=== PATIENT | male | born 1960 | race African-American/Black ===

== ENCOUNTER 2018-02-01 10:05 | Observation (INO) | payer MEDICARE, MEDICAID ==
--- NOTE | 2018-02-01 10:24 | ER Document Report ---
ED GI/ <EDUARDO HUMPHREY - Last Filed: 02/01/18 17:37> - General Mode of Arrival: Ambulatory Information source: Patient <ABBY OSEI - Last Filed: 02/02/18 06:53> - General Stated Complaint: VOMITING BLOOD Time Seen by Provider: 02/01/18 10:14 Notes: 58 year old male that presents to the emergency department today in custody of the [facility] [place] with complaints of vomiting blood prior to arrival. Patient states he was arrested last night at 0100 for not paying child support. Patient states that this morning he was eating breakfast, he felt hot, and then had 4 episodes of vomiting. Patient states his vomit was nothing but "dark red blood". Patient states in the first episode he noticed clots. Patient admits to being an alcoholic, stating he drinks at least a case of old Thai malt liquor a day. Patient denies any blood in stool. (SEA ABBY) - Related Data Allergies/Adverse Reactions: No Known Allergies Allergy (Verified 02/01/18 13:46) Past Medical History - Social History Smoking Status: Current Every Day Smoker Family History: Reviewed & Not Pertinent <ABBY OSEI - Last Filed: 02/02/18 06:53> Physical Exam - Rectal Tenderness: Yes Stool: Heme positive Hemorrhoids: None Prostate: Enlarged <MILAGROEDUARDO - Last Filed: 02/01/18 17:37> <ABBY OSEI - Last Filed: 02/02/18 06:53> - Vital signs Vitals: Temp Pulse Resp BP Pulse Ox 99 F 92 16 164/97 H 97 02/01/18 10:05 02/01/18 10:05 02/01/18 10:05 02/01/18 10:05 02/01/18 10:05 - Notes Notes: Physical Exam: General: Alert, appears well. In handcuffs. HEENT: Normocephalic. Atraumatic. PERRL. Extraocular movements intact. Oropharynx clear. Neck: Supple. Non-tender. Respiratory: No respiratory distress. Clear and equal breath sounds bilaterally. Cardiovascular: Regular rate and rhythm. Abdominal: Large amounts of fluid in bowel on percussion. No distension. Normal Bowel Sounds. Back: Non-tender. No deformity or step off. Extremities: Moves all four extremities. Upper extremities: Normal inspection. Normal ROM. Lower extremities: Normal inspection. No edema. Normal ROM. Neurological: Normal cognition. AAOx4. Normal speech. Psychological: Normal affect. Normal Mood. Skin: Warm. Dry. Normal color. (ABBY OSEI) Course - Laboratory Result Diagrams: 02/01/18 15:30 02/01/18 11:10 - Consults Dr. Pearl Consulted provider: will come to ER <EDUARDO HUMPHREY - Last Filed: 02/01/18 17:37> - Laboratory Result Diagrams: 02/02/18 04:07 02/01/18 11:10 <ABBY OSEI - Last Filed: 02/02/18 06:53> - Vital Signs Vital signs: Temp Pulse Resp BP Pulse Ox 98.8 F 67 18 138/81 H 98 02/02/18 03:28 02/02/18 03:28 02/02/18 03:28 02/02/18 03:28 02/02/18 03:28 - Laboratory Laboratory results interpreted by me: 02/01/18 02/01/18 02/01/18 10:49 11:10 11:10 WBC 3.5 L RBC MCV 98 H MCH 34.1 H AST 171 H Total Protein 9.6 H Albumin 5.2 H Urine Protein 30 H Urine Urobilinogen 2.0 H 02/01/18 15:30 WBC RBC 4.05 L MCV MCH 34.2 H AST Total Protein Albumin Urine Protein Urine Urobilinogen Discharge - Discharge Admitting Provider: Hospitalist Unit Admitted: Medical Floor <EDUARDO HUMPHREY - Last Filed: 02/01/18 17:37> <ABBY OSEI - Last Filed: 02/02/18 06:53> - Discharge Clinical Impression: Upper GI bleed Condition: Stable Disposition: ADMITTED INPATIENT Scribe Attestation: 02/01/18 10:51 I personally performed the services described in the documentation, reviewed and edited the documentation which was dictated to the scribe in my presence, and it accurately records my words and actions. (EDUARDO HUMPHREY) Scribe Documentation - Scribe Written by Scribe:: Yogi Candelario, 02/01/2018 1118 acting as scribe for :: Milagro <ABBY OSEI - Last Filed: 02/02/18 06:53>
[2018-02-01] MEDS ORDERED: PANTOPRAZOLE SODIUM 40 MG VIAL IV ONE (10:26)
[2018-02-01 11:39] LABS: ABSOLUTE EOSINOPHILS # (AUTO) 0.1 10^3/uL (0.0-0.6); ABSOLUTE MONOCYTES (AUTO) 0.3 10^3/uL (0.1-1.4); BASOPHILS % (AUTO) 0.9 % (0-2); EOSINOPHILS % (AUTO) 4.1 % (0-6); HEMATOCRIT 43.8 % (37.9-51.0); HEMOGLOBIN 15.2 g/dL (13.5-17.0); LYMPHOCYTES % (AUTO) 29.2 % (13-45); MEAN CORPUSCULAR HEMOGLOBIN 34.1 pg (27.0-33.4); MEAN CORPUSCULAR HGB CONC 34.6 g/dL (32.0-36.0); MEAN CORPUSCULAR VOLUME 98 fl (80-97); MONOCYTES % (AUTO) 9.4 % (3-13); PLATELET COUNT 248 10^3/uL (150-450); RED BLOOD COUNT 4.45 10^6/uL (4.35-5.55); RED CELL DISTRIBUTION WIDTH 13.1 % (11.5-14.0); SEGMENTED NEUTROPHILS % (AUTO) 56.4 % (42-78); TOTAL CELLS COUNTED % (AUTO) 100 %; WHITE BLOOD COUNT 3.5 10^3/uL (4.0-10.5)
[2018-02-01 11:43] LABS: APPEARANCE,URINE SLIGHTLY-CLOUDY; BILIRUBIN,URINE NEGATIVE (NEGATIVE); COLOR,URINE YELLOW; GLUCOSE, URINE NEGATIVE (NEGATIVE); KETONES,URINE NEGATIVE (NEGATIVE); LEUKOCYTE ESTERASE,URINE NEGATIVE (NEGATIVE); NITRITE,URINE NEGATIVE (NEGATIVE); PROTEIN,URINE 30 mg/dL (NEGATIVE); URINE SPECIFIC GRAVITY 1.015
[2018-02-01 12:01] LABS: ALANINE AMINOTRANSFERASE 44 U/L (21-72); ALBUMIN 5.2 g/dL (3.5-5.0); ALKALINE PHOSPHATASE 61 U/L (38-126); ANION GAP 14 (5-19); ASPARTATE AMINO TRANSFERASE 171 U/L (17-59); BILIRUBIN,DIRECT 0.4 mg/dL (0.0-0.4); BLOOD UREA NITROGEN 7 mg/dL (7-20); CALCIUM 10.2 mg/dL (8.4-10.2); CARBON DIOXIDE 28 mmol/L (22-30); CHLORIDE 98 mmol/L (98-107); CREATINE KINASE 167 U/L (55-170); GLUCOSE 90 mg/dL (75-110); POTASSIUM 4.9 mmol/L (3.6-5.0); SODIUM 139.9 mmol/L (137-145); TOTAL PROTEIN 9.6 g/dL (6.3-8.2)
[2018-02-01 12:14] LABS: TROPONIN I < 0.012 ng/mL
[2018-02-01] MEDS ORDERED: MAG HYDROX/AL HYDROX/SIMETH SUSP 30 ML UDCUP PO ONE (12:51)
[2018-02-01 15:43] LABS: ABSOLUTE EOSINOPHILS # (AUTO) 0.1 10^3/uL (0.0-0.6); ABSOLUTE LYMPHOCYTES (AUTO) 1.1 10^3/uL (0.5-4.7); ABSOLUTE MONOCYTES (AUTO) 0.4 10^3/uL (0.1-1.4); ABSOLUTE NEUT (AUTO) 2.5 10^3/uL (1.7-8.2); BASOPHILS % (AUTO) 1.1 % (0-2); EOSINOPHILS % (AUTO) 2.8 % (0-6); HEMATOCRIT 39.3 % (37.9-51.0); HEMOGLOBIN 13.8 g/dL (13.5-17.0); LYMPHOCYTES % (AUTO) 27.2 % (13-45); MEAN CORPUSCULAR HEMOGLOBIN 34.2 pg (27.0-33.4); MEAN CORPUSCULAR HGB CONC 35.2 g/dL (32.0-36.0); MEAN CORPUSCULAR VOLUME 97 fl (80-97); MONOCYTES % (AUTO) 9.9 % (3-13); PLATELET COUNT 258 10^3/uL (150-450); RED BLOOD COUNT 4.05 10^6/uL (4.35-5.55); RED CELL DISTRIBUTION WIDTH 13.1 % (11.5-14.0); TOTAL CELLS COUNTED % (AUTO) 100 %; WHITE BLOOD COUNT 4.2 10^3/uL (4.0-10.5)
[2018-02-01] MEDS ORDERED: PIPERACILLIN/TAZOBACTAM 3.375 GM VIAL IV ONE (16:17)
[2018-02-01] MEDS ORDERED: SUCRALFATE SUSP 1 GM/10 ML UDCUP PO ONE (16:22)
[2018-02-01] MEDS ORDERED: NORMAL SALINE 1000 ML 1,000 ML IV ONE (16:29)
[2018-02-01] MEDS ORDERED: NORMAL SALINE 1000 ML 1,000 ML with POTASSIUM CHLORIDE 20 MEQ, MAGNESIUM SULFATE 8 MEQ,... IV PRN ×5 (18:09)
[2018-02-01] MEDS ORDERED: LORAZEPAM INJ 2 MG/1 ML VIAL IV PRN (18:10)
--- NOTE | 2018-02-01 18:33 | PDOC H&P ---
History of Present Illness Patient complains of: hematemesis History of Present Illness: SHAHEEN AARON is a 58 year old male who was brought in from snf presenting with hematemesis. Patient has a history of chronic alcoholism and reports a history of being previously diagnosed with CHF several years ago but is not taking any medication at the moment. Patient says he has been apparently well until early this morning when he developed nausea and vomited four times dark red vomitus, ~half a cup per episode. He also reports of associated left lower and left mid abdominal pain which he describes as a soreness and occasionally radiating to the back. He denies dysuria, frequency, hematuria or flank pains. He reports having osme chills but not fever. He denies melena or hematochezia. Patient was referred to hospitalist for admission for a likely upper GI bleed. We don't have GI service today but per ER provider, case has been discussed with rubbish collection supervisor surgeon and Dr. Schuster will be coming tomorrow and will be performing the EGD. Patient says he drinks ~6 quarts of malt liquor a day and hs been drinking since he was 18 yrs old. His last drink was last night at 10 pm. He says he was remotely diagnosed with CHF several years ago but has not been taking any medication for the past few years. He denies PND, exertional dyspnea , orthopnea, chest pain, SOB or leg swelling. Past Medical History Cardiac Medical History: Reports: Congestive Heart Failure Social History Smoking Status: Former Smoker Family History Parental Family History Reviewed: Yes - no premature CAD Children Family History Reviewed: Yes - son hs seizure d/o Sibling(s) Family History Reviewed.: No Medication/Allergy Allergies/Adverse Reactions: No Known Allergies Allergy (Verified 02/01/18 13:46) Review of Systems All systems: reviewed and no additional remarkable complaints except as stated - as mentioned in HPI Physical Exam Vital Signs: Temp Pulse Resp BP Pulse Ox 99.2 F 74 16 148/96 H 96 02/01/18 14:21 02/01/18 14:21 02/01/18 10:05 02/01/18 14:21 02/01/18 14:21 Intake & Output 01/31/18 02/01/18 02/02/18 06:59 06:59 06:59 Weight 130 lb General appearance: PRESENT: no acute distress, well-developed, well-nourished Head exam: PRESENT: atraumatic, normocephalic Eye exam: PRESENT: conjunctiva pink, EOMI, PERRLA. ABSENT: scleral icterus Ear exam: PRESENT: normal external ear exam Mouth exam: PRESENT: moist, tongue midline Neck exam: ABSENT: carotid bruit, JVD, lymphadenopathy, thyromegaly Respiratory exam: PRESENT: clear to auscultation aaliyah. ABSENT: rales, rhonchi, wheezes Cardiovascular exam: PRESENT: RRR. ABSENT: diastolic murmur, rubs, systolic murmur Vascular exam: PRESENT: normal capillary refill GI/Abdominal exam: PRESENT: normal bowel sounds, soft, tenderness - very minimal direct LUQ tenderness, no rebound tenderness, no peritoneal signs. ABSENT: distended, guarding, mass, organolmegaly, rebound Rectal exam: PRESENT: other - VIVIAN not repeated by this provider but done by ER provider who reports enlarged prostate but no gross blood per EF or palpable mass Neurological exam: PRESENT: alert, awake, oriented to person, oriented to place , oriented to time, oriented to situation, CN II-XII grossly intact. ABSENT: motor sensory deficit Results Laboratory Results: 02/01/18 15:30 02/01/18 11:10 02/01/18 02/01/18 02/01/18 10:49 11:10 11:10 WBC 3.5 L RBC 4.45 Hgb 15.2 Hct 43.8 MCV 98 H MCH 34.1 H MCHC 34.6 RDW 13.1 Plt Count 248 Seg Neutrophils % 56.4 Lymphocytes % 29.2 Monocytes % 9.4 Eosinophils % 4.1 Basophils % 0.9 Absolute Neutrophils 2.0 Absolute Lymphocytes 1.0 Absolute Monocytes 0.3 Absolute Eosinophils 0.1 Absolute Basophils 0.0 Sodium 139.9 Potassium 4.9 Chloride 98 Carbon Dioxide 28 Anion Gap 14 BUN 7 Creatinine 0.64 Est GFR ( Amer) > 60 Est GFR (Non-Af Amer) > 60 Glucose 90 Calcium 10.2 Total Bilirubin 1.0 AST 171 H ALT 44 Alkaline Phosphatase 61 Total Protein 9.6 H Albumin 5.2 H Urine Color YELLOW Urine Appearance SLIGHTLY-CLOUDY Urine pH 5.0 Ur Specific [place] 1.015 Urine Protein 30 H Urine Glucose (UA) NEGATIVE Urine Ketones NEGATIVE Urine Blood NEGATIVE Urine Nitrite NEGATIVE Ur Leukocyte Esterase NEGATIVE Urine WBC (Auto) 1 Urine RBC (Auto) 1 Stool Occult Blood 02/01/18 02/01/18 15:30 16:25 WBC 4.2 RBC 4.05 L Hgb 13.8 Hct 39.3 MCV 97 MCH 34.2 H MCHC 35.2 RDW 13.1 Plt Count 258 Seg Neutrophils % 59.0 Lymphocytes % 27.2 Monocytes % 9.9 Eosinophils % 2.8 Basophils % 1.1 Absolute Neutrophils 2.5 Absolute Lymphocytes 1.1 Absolute Monocytes 0.4 Absolute Eosinophils 0.1 Absolute Basophils 0.0 Sodium Potassium Chloride Carbon Dioxide Anion Gap BUN Creatinine Est GFR ( Amer) Est GFR (Non-Af Amer) Glucose Calcium Total Bilirubin AST ALT Alkaline Phosphatase Total Protein Albumin Urine Color Urine Appearance Urine pH Ur Specific [place] Urine Protein Urine Glucose (UA) Urine Ketones Urine Blood Urine Nitrite Ur Leukocyte Esterase Urine WBC (Auto) Urine RBC (Auto) Stool Occult Blood NEGATIVE 02/01/18 02/01/18 11:10 11:10 Creatine Kinase 167 CK-MB (CK-2) 1.10 Troponin I < 0.012 Assessment & Plan - Diagnosis (1) Hematemesis Is this a current diagnosis for this admission?: Yes Plan: Possible upper GI bleed. Patient's hemoglobin slightly trended down from 15.2 this morning to 13.8. Patient was also not given a fluid bolus in the ER. He is not actively vomiting. Per ER nurse, she did note a small marito vomitus from patient's emesis bag. No baseline hemoglobin on record. As mentioned, we don't have GI service today but per ER provider, case has been discussed with rubbish collection supervisor surgeon and Dr. Schuster will be coming tomorrow and will be performing the EGD. Will keep patient on IV Protonix 40 mg bid. Will check H&H q6h. Patient was also amenable to plan. (2) Alcohol use disorder Is this a current diagnosis for this admission?: Yes Plan: Patient will be closely monitored for withdrawal symptoms/. Will be started on banana bag infusion. Ativan as needed for withdrawal symptoms. - Time Time Spent: 30 to 50 Minutes
--- NOTE | 2018-02-01 18:55 | RADIOLOGY REPORT (SQ) ---
EXAM DESCRIPTION: CHEST SINGLE VIEW COMPLETED DATE/TIME: 02/01/2018 6:42 pm REASON FOR STUDY: CHF, hematemesis COMPARISON: None. EXAM PARAMETERS: NUMBER OF VIEWS: One view. TECHNIQUE: Single frontal radiographic view of the chest acquired. RADIATION DOSE: NA LIMITATIONS: None. FINDINGS: LUNGS AND PLEURA: No opacities, masses or pneumothorax. No pleural effusion. MEDIASTINUM AND HILAR STRUCTURES: Age-appropriate contour. HEART AND VASCULAR STRUCTURES: Heart normal in size. Normal vasculature. BONES: No acute findings. HARDWARE: None in the chest. OTHER: No other significant finding. IMPRESSION: No consolidation or pleural effusion. TECHNICAL DOCUMENTATION: JOB ID: [id number] [id number] 2010 [employer]- All Rights Reserved Reading location - IP/workstation name: [email or web address]
[2018-02-01] MEDS ORDERED: PANTOPRAZOLE SODIUM 40 MG VIAL IV SCH (22:00)
[2018-02-01 22:39] LABS: HEMATOCRIT 39.2 % (37.9-51.0); HEMOGLOBIN 13.7 g/dL (13.5-17.0); MEAN CORPUSCULAR HGB CONC 35.1 g/dL (32.0-36.0); MEAN CORPUSCULAR VOLUME 97 fl (80-97); PLATELET COUNT 211 10^3/uL (150-450); RED BLOOD COUNT 4.04 10^6/uL (4.35-5.55); WHITE BLOOD COUNT 3.9 10^3/uL (4.0-10.5)
[2018-02-02] MEDS ORDERED: PEG 3350/NA SULF,BICARB,CL/KCL 4000 ML PO ONE (03:00)
[2018-02-02 04:30] LABS: ABSOLUTE EOSINOPHILS # (AUTO) 0.2 10^3/uL (0.0-0.6); ABSOLUTE LYMPHOCYTES (AUTO) 1.3 10^3/uL (0.5-4.7); ABSOLUTE MONOCYTES (AUTO) 0.5 10^3/uL (0.1-1.4); ABSOLUTE NEUT (AUTO) 1.1 10^3/uL (1.7-8.2); BASOPHILS % (AUTO) 1.3 % (0-2); HEMATOCRIT 37.9 % (37.9-51.0); HEMOGLOBIN 13.1 g/dL (13.5-17.0); LYMPHOCYTES % (AUTO) 42.5 % (13-45); MEAN CORPUSCULAR HEMOGLOBIN 33.9 pg (27.0-33.4); MEAN CORPUSCULAR HGB CONC 34.5 g/dL (32.0-36.0); MEAN CORPUSCULAR VOLUME 98 fl (80-97); PLATELET COUNT 196 10^3/uL (150-450); RED BLOOD COUNT 3.86 10^6/uL (4.35-5.55); RED CELL DISTRIBUTION WIDTH 12.7 % (11.5-14.0); SEGMENTED NEUTROPHILS % (AUTO) 34.2 % (42-78); TOTAL CELLS COUNTED % (AUTO) 100 %; WHITE BLOOD COUNT 3.1 10^3/uL (4.0-10.5)
[2018-02-02 04:42] LABS: INTERNATIONAL RATION (INR) 0.97; PROTHROMBIN TIME 13.4 SEC (11.4-15.4)
[2018-02-02] MEDS ORDERED: LORAZEPAM INJ 2 MG/1 ML VIAL IV PRN (07:30)
[2018-02-02] MEDS ORDERED: MIDAZOLAM 2 MG/2 ML INJ ONE (09:29)
[2018-02-02] MEDS ORDERED: ONDANSETRON HCL INJ/PF 4 MG/2 ML SDV ONE (09:29)
[2018-02-02] MEDS ORDERED: FENTANYL CITRATE INJ/PF 100 MCG/2 ML AMPUL ONE (09:29)
[2018-02-02] MEDS ORDERED: PROPOFOL INJ 200 MG/20 ML VIAL IV ONE (09:30)
[2018-02-02] MEDS ORDERED: PANTOPRAZOLE SODIUM 40 MG VIAL IV SCH (10:00)
[2018-02-02 10:15] LABS: HEMATOCRIT 41.2 % (37.9-51.0); HEMOGLOBIN 13.9 g/dL (13.5-17.0); MEAN CORPUSCULAR HEMOGLOBIN 33.4 pg (27.0-33.4); MEAN CORPUSCULAR HGB CONC 33.9 g/dL (32.0-36.0); MEAN CORPUSCULAR VOLUME 99 fl (80-97); PLATELET COUNT 187 10^3/uL (150-450); RED BLOOD COUNT 4.17 10^6/uL (4.35-5.55); RED CELL DISTRIBUTION WIDTH 12.9 % (11.5-14.0); WHITE BLOOD COUNT 3.4 10^3/uL (4.0-10.5)
--- NOTE | 2018-02-02 11:33 | Operative Report ---
Operative Report DATE OF SURGERY: 02/02/18 PREOPERATIVE DIAGNOSIS: 1. Acute GI bleed. 2. Alcohol abuse POSTOPERATIVE DIAGNOSIS: Same with diffuse moderate gastritis OPERATION: 1. Esophagogastroduodenoscopy. 2. Mucosal biopsy of gastric antrum SURGEON: CARLYN RUBI ANESTHESIA: LMAC TISSUE REMOVED OR ALTERED: Mucosal biopsy of gastric COMPLICATIONS: None ESTIMATED BLOOD LOSS: Minimal INTRAOPERATIVE FINDINGS: See below PROCEDURE: The patient was taken from the preop holding area the main operating room where LMAC anesthesia was induced. Oral mouthpiece inserted, patient placed in the left lateral decubitus position. Surgical plan surgical timeout conducted Flexible adult upper endoscope was advanced through the hypopharynx, down the esophagus through the stomach into the duodenum first and second portions. The patient tolerated the procedure well The duodenum was normal. There was no evidence of inflammation tumor polyp or bleeding. Scope was brought back through the pylorus which was normal with careful inspection. The stomach was significant for diffuse moderate gastritis with streaking and flecks of clot. Biopsy was taken of the antrum for COREY testing with a cold forceps device. There was no evidence of tumor stricture bleeding polyp or active peptic ulcer disease. The bleeding source was felt to be gastritis. Photos were taken. The scope was retroflexed in the stomach looking at the gastric cardia, and no pathology seen here. The scope was straightened out and brought to the GE junction. Z line was at 40 cm from the incisor. Photos taken. The scope was brought back to the esophagus. No evidence of varices. Scope was withdrawn from the patient's oropharynx. He tolerated the procedure well. He was taken to recovery room in stable condition.
[2018-02-02] MEDS ORDERED: MORPHINE SULFATE 10 MG/ML INJ IV PRN (11:36)
[2018-02-02] MEDS ORDERED: FENTANYL CITRATE INJ/PF 100 MCG/2 ML AMPUL IV PRN ×3 (11:36)
[2018-02-02] MEDS ORDERED: DIPHENHYDRAMINE HCL 50 MG/ML VIAL IV PRN (11:36)
[2018-02-02] MEDS ORDERED: PROMETHAZINE HCL INJ 25 MG/1 ML VIAL IV PRN ×2 (11:36)
[2018-02-02] MEDS ORDERED: MEPERIDINE HCL/PF INJ 25 MG/1 ML DISP.SYRIN IV PRN (11:36)
[2018-02-02] MEDS ORDERED: ONDANSETRON HCL INJ/PF 4 MG/2 ML SDV IV PRN (11:36)
[2018-02-02 13:00] VITALS: BP 164/97
[2018-02-02] MEDS ORDERED: NORMAL SALINE 1000 ML 1,000 ML with POTASSIUM CHLORIDE 20 MEQ, MAGNESIUM SULFATE 8 MEQ,... IV SCH ×5 (18:00)
--- NOTE | 2018-02-02 19:08 | PDOC DISCHARGE SUMMARY ---
General - Admit/Disc Date/PCP Admission Date/Primary Care Provider: 02/01/18 19:40 Discharge Date: 02/02/18 - Discharge Diagnosis (1) Hematemesis Is this a current diagnosis for this admission?: Yes (2) Alcohol use disorder Is this a current diagnosis for this admission?: Yes - Additional Information Resuscitation Status: Full Code Prescriptions: Pantoprazole Sodium [Protonix] 40 mg PO QAM #42 tablet. Sucralfate [Carafate 1 gm Tablet] 1 gm PO BID #10 tablet Home Medications: Pantoprazole Sodium [Protonix] 40 mg PO QAM #42 tablet. 02/02/18 Sucralfate [Carafate 1 gm Tablet] 1 gm PO BID #10 tablet 02/02/18 History of Present Illness History of Present Illness: SHAHEEN AARON is a 58 year old male who was [facility] in from [facility] living presenting with hematemesis. Patient has a history of chronic alcoholism and reports a history of being previously diagnosed with CHF several years ago but is not taking any medication at the moment. Patient says he has been apparently well until early this morning when he developed nausea and vomited four times dark red vomitus, ~half a cup per episode. He also reports of associated left lower and left mid abdominal pain which he describes as a soreness and occasionally radiating to the back. He denies dysuria, frequency, hematuria or flank pains. He reports having osme chills but not fever. He denies melena or hematochezia. Patient was referred to hospitalist for admission for a likely upper GI bleed. We don't have GI service today but per ER provider, case has been discussed with director of recreation therapy surgeon and Dr. Schuster will be coming tomorrow and will be performing the EGD. Patient says he drinks ~6 quarts of malt liquor a day and hs been drinking since he was 18 yrs old. His last drink was last night at 10 pm. He says he was remotely diagnosed with CHF several years ago but has not been taking any medication for the past few years. He denies PND, exertional dyspnea , orthopnea, chest pain, SOB or leg swelling. Hospital Course Hospital Course: Patient was admitted for bloody emesis. He drinks 6qts of liquor everyday. He was initially started on IV protonix and also banana bag for alcohol abuse. EGD done and showed severe diffuse gastritis with no bleeding ulcer or varices. This is likely from alcohol induced gastritis. His hemoglobin have been stable. He will be discharged on oral Protonix. He did not have an episode of hematemesis since admission. He says he will be a seeing a new PCP and was instructed to have new PCP request of EGD biopsy results and H pylori testing. Physical Exam Vital Signs: Temp Pulse Resp BP Pulse Ox 98.4 F 84 21 H 141/52 H 98 02/02/18 11:27 02/02/18 11:27 02/02/18 11:27 02/02/18 11:27 02/02/18 11:27 Intake & Output 02/01/18 02/02/18 02/03/18 06:59 06:59 06:59 Intake Total 1000 Output Total 0 Balance 1000 Weight 198 lb 6.656 oz General appearance: PRESENT: no acute distress, well-developed, well-nourished Head exam: PRESENT: atraumatic, normocephalic Eye exam: PRESENT: conjunctiva pink, EOMI, PERRLA. ABSENT: scleral icterus Ear exam: PRESENT: normal external ear exam Mouth exam: PRESENT: moist, tongue midline Neck exam: ABSENT: carotid bruit, JVD, lymphadenopathy, thyromegaly Respiratory exam: PRESENT: clear to auscultation aaliyah. ABSENT: rales, rhonchi, wheezes Cardiovascular exam: PRESENT: RRR. ABSENT: diastolic murmur, rubs, systolic murmur Pulses: PRESENT: normal dorsalis pedis pul Vascular exam: PRESENT: normal capillary refill GI/Abdominal exam: PRESENT: normal bowel sounds, soft. ABSENT: distended, guarding, mass, organolmegaly, rebound, tenderness Rectal exam: PRESENT: deferred Neurological exam: PRESENT: alert, awake, oriented to person, oriented to place , oriented to time, oriented to situation, CN II-XII grossly intact. ABSENT: motor sensory deficit Results Laboratory Results: 02/02/18 09:59 02/01/18 02/02/18 02/02/18 22:30 04:07 09:59 WBC 3.9 L 3.1 L 3.4 L RBC 4.04 L 3.86 L 4.17 L Hgb 13.7 13.1 L 13.9 Hct 39.2 37.9 41.2 MCV 97 98 H 99 H MCH 34.0 H 33.9 H 33.4 MCHC 35.1 34.5 33.9 RDW 13.0 12.7 12.9 Plt Count 211 196 187 Seg Neutrophils % 34.2 L Lymphocytes % 42.5 Monocytes % 17.0 H Eosinophils % 5.0 Basophils % 1.3 Absolute Neutrophils 1.1 L Absolute Lymphocytes 1.3 Absolute Monocytes 0.5 Absolute Eosinophils 0.2 Absolute Basophils 0.0 Impressions: Chest X-Ray 02/01/18 00:00 IMPRESSION: No consolidation or pleural effusion. Qualifiers - * PATIENT BEING DISCHARGED WITH ANY OF THE FOLLOWING DIAGNOSIS: No
== END 2018-02-02 15:09 | disposition home or self-care (01) ==
LOC: ER 10:05 → EH 19:40 → INTOOBSV 19:40 → UNDOADMIN 19:40 → 3W 22:24
PROVIDERS: ADMIT Internal Medicine; ATTEND Internal Medicine
PROC: 0DB78ZX Excision of Stomach, Pylorus, Via Natural or Artificial Opening Endoscopic, Diagnostic (ICD-10-PCS; principal; 2018-02-02 10:30)
DX: K92.0 Hematemesis (principal); F10.20 Alcohol dependence, uncomplicated; K29.50 Unspecified chronic gastritis without bleeding; F17.200 Nicotine dependence, unspecified, uncomplicated; Z86.79 Personal history of other diseases of the circulatory system
CPT/HCPCS: 99285; 96374; 43239; 36415; 82553; 82550; 83690; 85025 ×2; 85027 ×2; 85610; 82272; 80053; 81001; 84484; 88305 ×2; 71045; G0378 ×3; J2250; J3010; C9113 ×2; J2405; J2704; 731; J3411; J3475; J3480; J3490; J7030; S0164